=== PATIENT | female | born 1950 | race Caucasian/White ===

== ENCOUNTER 2020-05-31 09:29 | Outpatient (CLI) | payer MEDICARE, SELFPAY ==
--- NOTE | ~2020-05-31 | MM_ITS ---
EXAMINATION: MM screening niko BI w elke HISTORY: Screening mammogram TECHNIQUE: Craniocaudal and mediolateral oblique 3-D tomosynthesis images were obtained and synthetic 2-D images were generated. CAD analysis was submitted and interpreted. COMPARISON: 08/02/2018, 07/28/2017, 02/14/2016 bilateral digital screening mammogram examinations BREAST PARENCHYMAL COMPOSITION: There are scattered areas of fibroglandular density. FINDINGS: There is no evidence of suspicious mass, calcification, or architectural distortion to sugg est malignancy in either breast. There has been no suspicious interval change. IMPRESSION: 1. No mammographic evidence of malignancy. 2. Recommend routine screening mammography in one year. BI-RADS Category 1: Negative Reviewed, dictated and finalized at location A. UTER ANALYST
== END 2020-05-31 09:30 | disposition home or self-care (01) ==
PROVIDERS: PCP Family Medicine; Visit Provider Student in an Organized Health Care Education/Training Program
DX: Z12.31 Encounter for screening mammogram for malignant neoplasm of breast (principal)
CPT/HCPCS: 77063; 77067

== ENCOUNTER 2020-09-20 13:25 | Outpatient (CLI) | payer MEDICARE, SELFPAY ==
--- NOTE | ~2020-09-20 | DEXA_ITS ---
Bone Density Report Name: Tayler Griffiths Age: 70 Sex: Female Ethnicity: White Date of : 1950 Indication: osteopenia; height loss; Referring Provider: Mariya Blair Study: Bone densitometry was performed. Exam Date: September 20, 2020 Accession number: [id number] Bone Density: Region BMD T-score Z-score Classification AP Spine (L1-L4) 0.867 -1.6 0.3 Osteopenia Femoral Neck (Left) 0.650 -1.8 -0.1 Osteopenia Total Hip (Left) 0.918 -0.2 1.2 Normal Total Hip Bilateral Avg 0.894 -0.4 1.0 Normal Femoral Neck (Right) 0.654 -1.8 -0.1 Osteopenia Total Hip (Right) 0.869 -0.6 0.8 Normal World Health Organization criteria for BMD impression classify patients as: Normal (T-score at or above -1.0), Osteopenia (T-score between -1.0 and -2.5), or Osteoporosis (T-score at or below -2.5). 10-year Fracture Risk(1): Major Osteoporotic Fracture 10.0% Hip Fracture 1.4% Reported Risk Factors: [place] (), Neck BMD=0.654, BMI=29.9 (1) FRAX(R) Version 3.08. Fracture probability calculated for an untreated patient. Fracture probability may be lower if the patient has received treatment. Previous Exams: Region Exam Age BMD T-score BMD Change BMD Change Date g/cm2 vs Baseline vs Previous AP Spine(L1-L4) 09/20/2020 70 0.867 -1.6 -0.052(-5.6%)* 0.007(0.8%)# 08/02/2018 67 0.860 -1.7 -0.059(-6.4%)# -0.051(-5.6%)* 02/14/2016 65 0.912 -1.2 -0.007(-0.8%)# -0.007(-0.8%)# 10/28/2013 63 0.919 -1.2 Total Hip(Left) 09/20/2020 70 0.918 -0.2 0.022(2.5%) -0.085(-8.5%)# 08/02/2018 67 1.003 0.5 0.107(12.0%)# 0.088(9.6%)* 02/14/2016 65 0.915 -0.2 0.019(2.1%)# 0.019(2.1%)# 10/28/2013 63 0.896 -0.4 Total Hip(Right) 09/20/2020 70 0.869 -0.6 -0.064(-6.9%)* -0.100(-10.3%) 08/02/2018 67 0.969 0.2 0.036(3.8%)# 0.051(5.6%)* 02/14/2016 65 0.918 -0.2 -0.016(-1.7%)# -0.016(-1.7%)# 10/28/2013 63 0.934 -0.1 *Denotes significance at 95% confidence level, LSC for AP Spine = 0.022 g/cm2, LSC for Total Hip = 0.027 g/cm2 Clinical Information Provided by Patient: Has used the following medications: Vitamin D, Calcium Patient maximum height was 62 Menopause Age: 55 Drinks caffeinated beverages Onset of menses at age 14 Number of children 2 Impression: The patient has low bone mass, based on the Left Femoral Neck T-score. The patient has an estimated ten-year risk of hip fracture of 1.4% and an
== END 2020-09-20 13:26 | disposition home or self-care (01) ==
LOC: ANHIMG 13:26
PROVIDERS: PCP Family Medicine; Visit Provider Family Medicine
DX: Z78.0 Asymptomatic menopausal state (principal); M85.88 Other specified disorders of bone density and structure, other site; M85.852 Other specified disorders of bone density and structure, left thigh; M85.851 Other specified disorders of bone density and structure, right thigh
CPT/HCPCS: 77080

== ENCOUNTER 2022-03-13 09:34 | Outpatient (CLI) | payer MEDICARE, SELFPAY ==
--- NOTE | ~2022-03-13 | MM_ITS ---
EXAMINATION: MM screening niko BI w elke HISTORY: Screening mammogram TECHNIQUE: Craniocaudal and mediolateral oblique 3-D tomosynthesis images were obtained and synthetic 2-D images were generated. CAD analysis was submitted and interpreted. COMPARISON: 05/31/2020, 08/02/2018, 07/28/2017 bilateral screening mammogram examinations BREAST PARENCHYMAL COMPOSITION: There are scattered areas of fibroglandular density. FINDINGS: There is no evidence of suspicious mass, calcification, or architectural distortion to sugg est malignancy in either breast. There has been no suspicious interval change. IMPRESSION: 1. No mammographic evidence of malignancy. 2. Recommend routine screening mammography in one year. BI-RADS Category 1: Negative Reviewed, dictated and finalized at location A.
== END 2022-03-13 09:35 | disposition home or self-care (01) ==
PROVIDERS: PCP Family Medicine; Visit Provider Student in an Organized Health Care Education/Training Program
DX: Z12.31 Encounter for screening mammogram for malignant neoplasm of breast (principal)
CPT/HCPCS: 77063; 77067

== ENCOUNTER 2023-07-28 07:46 | Outpatient (CLI) | payer MEDICARE, SELFPAY ==
--- NOTE | ~2023-07-28 | MM_ITS ---
EXAMINATION: MM screening niko BI w elke HISTORY: Screening TECHNIQUE: Craniocaudal and mediolateral oblique 3-D tomosynthesis images were obtained and synthetic 2-D images were generated. CAD analysis was submitted and interpreted. COMPARISON: Comparison to multiple prior studies sequentially, with oldest reviewed study dated 12/14. BREAST PARENCHYMAL COMPOSITION: Breast composed of scattered areas of fibroglandular density FINDINGS: There is no evidence of suspicious mass, calcification, or architectural distortion to sugg est malignancy in either breast. There has been no suspicious interval change. IMPRESSION: 1. No mammographic evidence of malignancy. 2. Recommend routine screening mammography in one year. BI-RADS Category 1: Negative Reviewed, dictated and finalized at location A. LER
== END 2023-07-28 07:47 | disposition home or self-care (01) ==
PROVIDERS: PCP Family Medicine; Visit Provider Registered Nurse
DX: Z12.31 Encounter for screening mammogram for malignant neoplasm of breast (principal)
CPT/HCPCS: 77063; 77067

== ENCOUNTER 2024-08-02 08:44 | Outpatient (CLI) | payer MEDICARE, SELFPAY ==
--- NOTE | ~2024-08-02 | MM_ITS ---
EXAMINATION: MM screening niko BI w elke HISTORY: Screening TECHNIQUE: Craniocaudal and mediolateral oblique 3-D tomosynthesis images were obtained and synthetic 2-D images were generated. CAD analysis was submitted and interpreted. COMPARISON: Comparison to multiple prior studies sequentially, with oldest reviewed study dated 02/13. BREAST PARENCHYMAL COMPOSITION: Not dense: There are scattered areas of fibroglandular density. FINDINGS: There is no evidence of suspicious mass, calcification, or architectural distortion to sugg est malignancy in either breast. There has been no suspicious interval change. IMPRESSION: 1. No mammographic evidence of malignancy. 2. Recommend routine screening mammography in one year. BI-RADS Category 1: Negative Reviewed, dictated and finalized at location B. ICES CLERK
--- OUTSIDE RECORDS SUMMARY | 2024-08-02 09:00 | XMS_ITS | Encounter Summary ---
Author Organization [facility] Address [address] [place] [address]. [place] [address] [place] [address] Care Team Providers Care Buffing Wheel Inspector Name Role Phone Mariya Blair DO Primary Care Provider [phone] Encounter Details Date Type Department Care Team (Late Contact Info) Description 12/17/2023 blinkboxt Message Enc [facility], [facility] [address] [place], [place] [id number] [facility], [facility] Provider Pre-cardiac cath labs reviewed Social History Tobacco Use Types Packs/Day Years Used Date Smoking Tobacco: Never Smokeless Tobacco: Never Alcohol Use Standard Drinks/Week Comments Not Currently 0 (1 standard drink = 0.6 oz pure alcohol) maybe once a month for any alcohol Comments Unknown Sex and Gender Information Value Date Recorded Sex Assigned at Not on file 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 [facility] [address] [place], [place] [id number] documented as of this encounter Visit Diagnoses Not on filedocumented in this encounter Care Teams Buffing Wheel Inspector Relationship Specialty Start Date End Date Mariya Blair DO [address] [place] [address] PCP - General FAMILY PRACTICE 04/28/23 documented as of this encounter
--- OUTSIDE RECORDS SUMMARY | 2024-08-02 09:00 | XMS_ITS | Continuity of Care Document ---
Author Organization [facility] Address [address] [place] [id number] Phone Care Team Providers Care Highway Maintenance Technician Name Role Phone Patricia Lexi JACKSON Unavailable Unavaila ble Allergies, Adverse Reactions, Alerts Substance Reaction Status Criticality No Known Allergies Active No Inform ation Medications Medication Instructions Dosage Effective Dates (start - stop) Status Comments levothyroxine 75 mcg tablet take 1 tablet by oral route every day 75 MCG - Active atorvastatin 20 mg tablet take 1 tablet by oral route every day 20 MG - Active aspirin 81 mg tablet,delayed release take 1 tablet by oral route every day 81 MG - Active METOPROLOL SUCCINATE (unknown strength) take 1 tablet by oral route every day Not Available - Active TYLENOL (unknown strength) take 1 tablet by oral route every 4 hours as needed as needed Not Available - Active CALTRATE 600 PLUS D3 (unknown strength) take 1 tablet by oral route 2 times every day Not Available - Active Procedures Procedure Date Methylprednisolone 80mg/ml inj 25 Drugs unclassified injection DRAIN/INJECT JOINT/BURSA OFFICE/OUTPATIENT VISIT EST RADEX KNE COMPL 4/MORE VIEWS Methylprednisolone 80mg/ml inj 24 Drugs unclassified injection DRAIN/INJECT JOINT/BURSA OFFICE/OUTPATIENT VISIT EST Methylprednisolone 80mg/ml inj 24 Drugs unclassified injection DRAIN/INJECT JOINT/BURSA OFFICE/OUTPATIENT VISIT EST RADEX KNE COMPL 4/MORE VIEWS OFFICE/OUTPATIENT VISIT EST Methylprednisolone 80mg/ml inj 23 Ropivacaine HCl injection DRAIN/INJECT JOINT/BURSA OFFICE/OUTPATIENT VISIT EST OFFICE/OUTPATIENT VISIT EST DOC FX & TEST/TXMNT FOR OP MRI JT Lower w/o Contrast Methylprednisolone 80mg/ml inj 23 Drugs unclassified injection DRAIN/INJECT JOINT/BURSA OFFICE/OUTPATIENT VISIT EST RADEX KNE COMPL 4/MORE VIEWS Methylprednisolone 80mg/ml inj 23 Drugs unclassified injection DRAIN/INJECT JOINT/BURSA OFFICE/OUTPATIENT VISIT NEW RADEX CHICHI COMPL MINIMUM 2 VIEWS 016 RADEX FNGR MINIMUM 2 VIEWS OFFICE/OUTPATIENT VISIT NEW Advance Directives Directive Yes / No Effective Date File Name Other Directive No N/A N/A WARNING:The information contained in this section is historical and is provided for information only and does not constitute a legal document or any assurance that the information is still accurate. Please verify the information with the romero of the legal document before using it for clinical purposes. Encounters Encounter Description Practice Location Reason(s) For Visit Diagnoses Date Provider Providers Copied on Encounter OFFICE/OUTPA TIENT VISIT EST [facility], [address], [place], [address], [place] tel:[phone] [facility] Primary osteoarthriti s of right knee 5 Patricia Elliott. [address], [place], [address]. tel:[phone] Referring Provider: Mariya Batista, [address] [place] [address] , [place], [address]. tel:[phone] [facility], [address], [place], [address], [place] tel:[phone] [facility] No Information Oct-0 3-202 4 L'Hommedieu Ashley. [address], [place], [place], [id number]. tel:[phone] OFFICE/OUTPA TIENT VISIT EST [facility], [address], [place], [address], [place] tel:[phone] [facility] Primary osteoarthriti s of right knee Mar-0 2-202 4 Laramore Lexi. [address], [place], [address]. tel:[phone] Referring Provider: Mariya Batista, [place], [address]. tel:[phone] OFFICE/OUTPA TIENT VISIT EST [facility], [address], [place], [address], [place] tel:[phone] [facility] Primary osteoarthriti s of right knee Jeanmarie-2 4 Laramore Lexi. [address], [place], [address]. tel:[phone] Referring Provider: Mariya Batista, [place], [address]. tel:[phone] OFFICE/OUTPA TIENT VISIT EST [facility], [address], [place], [address], [place] tel:[phone] [facility] Primary osteoarthriti s of right knee Aug- 3- 4 Iselaamore Lexi. [address], [place], [address]. tel:[phone] Referring Provider: Mariya Batista, [place], [address]. tel:[phone] OFFICE/OUTPA TIENT VISIT EST [facility], [address], [place], [address], [place] tel:[phone] [facility] Pain in right hipPrimary osteoarthriti s of right knee Dec-0 8-202 3 L'Hommedieu Ashley. [address] , [place], [place], [id number]. tel:[phone] Referring Provider: Mariya Batista, [address] [place] [address] , [place], [address]. tel:[phone] OFFICE/OUTPA TIENT VISIT EST [facility], [address] [address], [place], [address], [place] tel:[phone] [facility] Closed nondisplaced fracture of medial condyle of right femur, initial encounterPrim pablo osteoarthriti s of right knee Feb-1 3 Xena Kidd. [address] [facility] [address] , [place], [place], [id number]. tel:[phone] Referring Provider: Mariya Batista, [address] [place] [address] , [place], [address]. tel:[phone] [facility], [address] [address], [place], [address], [place] tel:[phone] [facility] Unspecified internal derangement of right knee Feb-0 3 No Information Referring Provider: Marti Mccallum , [address] [facility] [address], [place], [address]. tel:[phone] [facility], [address] [facility] [address] [address], [place], [address], [place] tel:[phone] [facility] Internal derangement of right knee Jan-3 3 Maye'Hommedieu Ashley. [address] , [place], [place], [address]. tel:[phone] OFFICE/OUTPA TIENT VISIT EST [facility], [address] [address], [place], [address], [place] tel:[phone] [facility] Body mass index [BMI] 29.0-29.9, adultInternal derangement of right knee Jan-0 3 Lorne Arais. [address] [facility] [address], [place], [place], [id number], . tel:[phone] Referring Provider: Mariya Batista, [address] [place] [address] , [place], [address]. tel:[phone] OFFICE/OUTPA TIENT VISIT NEW [facility], [address], [place], [address], [place] tel:[phone] [facility] Pain in right kneeBody mass index [BMI] 29.0-29.9, adultInternal derangement of right knee Apr-2 3 L'Hommedieu Ashley. [address], [place], [place], [address]. tel:[phone] Referring Provider: Mariya Batista, [address] [place] [address] , [place], [address]. tel:[phone] OFFICE/OUTPA TIENT VISIT NEW [facility], [address] [facility] [address], [place], [address], [place] tel:[phone] [facility] Right shoulder pain, unspecified chronicityPai n of right thumbSubacrom ial bursitis, right October-201 6 Jasbir Catherine. [address], [place], [place], [address]. tel:[phone] Referring Provider: Oni Velásquez, [address], [place], [address]. tel:[phone] Family History Family Member Type Diagnosis Age At Onset Father Problem Cardiovascular disease Father Problem Hypertension Mother Problem (finding) Alive and well Brother Problem Cancer, unknown type Brother Problem Hypertension Immunizations Vaccine Date Status Comments Pneumo (2 yrs or older)(PPV) administered Source: Other Provider Payers Payer name Insurance type Covered green party ID Authoriza tion(s) [employer] Medicare PPO E2 [id number] Social History Type Description Quantity Date Captured Comments Alcohol Use Details Unknown Caffeine Use Details Unknown Tobacco Use Status Current non-smoker Smoking Status Never smoker Non-Smoking Tobacco Use Details : No Details Available : No Details Available Sex Female Chief Complaint And Reason For Visit No Information Reason For Referral Reason For Referral No Information Plan Of Treatment Date Type Action Status Referral Ordered: RADEX KNE COMPL 4/MORE VIEWS RT knee ordered Referral Ordered: MRI JT Lower w/o Contrast RT knee ordered Referral Ordered: RADEX KNE COMPL 4/MORE VIEWS RT ordered Referral Ordered: RADEX CHICHI COMPL MINIMUM 2 VIEWS RT shoulder ordered Referral Ordered: RADEX FNGR MINIMUM 2 VIEWS RT thumb ordered Appointment Tayler Griffiths Scheduled History Of Present Illness Encounter Date Complaint History Of Prese nt Illness No Information Functional Status Date Functional Assessmen t No Information Instructions Date Instruction Additional Infor mation Giving encouragement to exercise Related to Body mass index [BMI] 29.0-29.9, adult Giving encouragement to exercise Related to Body mass index [BMI] 29.0-29.9, adult Home exercise program. Related t o Pain of right thumb Discussed treatment options Rela johanna to Pain of right thumb Assessments Type Assessment Date assessment Primary osteoarthritis of right knee Patient Care Teams Name Effective Dates (start - stop) Status Members No Information
--- OUTSIDE RECORDS SUMMARY | 2024-08-02 09:00 | XMS_ITS | Clinical Summary ---
Author Organization [facility] Address [address] [place] [address]. [place] [address] [place] [address] Care Team Providers Care Plate Driller Name Role Phone Mariya Blair Primary Care Provider Allergies No known active allergies Medications calcium carb-cholecalci ferol (CALTRATE 600+D) 600-20 MG-MCG tablet Take 1 tablet by mouth 2 (two) times daily. Active acetaminophen (TYLENOL) 500 MG tablet Take 1 tablet (500 mg total) by mouth every 6 (six) hours as needed for Pain. Active aspirin EC (ECOTRIN) 81 MG tablet Take 1 tablet (81 mg total) by mouth daily. 30 tablet 1 12/21/2023 Active metoprolol succinate ER (TOPROL XL) 25 MG 24 hr tablet Take 1 tablet (25 mg total) by mouth daily. 90 tablet 3 12/21/2023 Active levothyroxine (SYNTHROID) 75 MCG tablet Take 1 tablet (75 mcg total) by mouth daily. 12/15/2023 Active atorvastatin (LIPITOR) 20 MG tablet take 1 tablet by mouth nightly at bedtime 30 tablet 5 02/12/2024 Active Active Problems No known active problems Family History Medical History Relation Comments Heart Attack Brother 1 Stent Cardiac Brother 1 Heart Attack Brother 2 Stent Cardiac Brother 2 Heart Brother 3 palpitations Cancer Brother 4 Leukemia. Kidney Disease Brother 4 removed one kidn ey Hypertension Brother 5 2 more brothers also Stent Cardiac Brother 5 Stroke Brother 5 Arthritis Father Early Hearing Loss Father hearing aids Heart Attack Father Heart Disease Father pacemaker Hypertension Father Retardation/Learning Difficulties Father Valve Disease Father Vision loss Father pacemaker Father Arthritis Mother Early Hearing Loss Mother hearing aids Relation Status Comments Brother 1 Alive Brother 2 Alive Brother 3 Alive Brother 4 (Age 66) Brother 5 Alive Father (Age 89) Maternal Grandfather (Age 58) Maternal Grandmother (Age 70) Mother Alive Social History Tobacco Use Types Packs/Day Years Used Date Smoking Tobacco: Never Smokeless Tobacco: Never Alcohol Use Standard Drinks/Week Comments Not Currently 0 (1 standard drink = 0.6 oz pure alcohol) maybe once a month for any alcohol Comments Unknown Sex and Gender Information Value Date Recorded Sex Assigned at Not on file 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 Gender Identity Not on file Sexual Orientation Not on file Last Filed Vital Signs Vital Sign Reading Time Taken Comments Blood Pressure 124/80 02/03/2024 1:16 PM CDT Pulse 56 02/03/2024 1:16 PM CDT Temperature 36.5 ??C (97.7 ??F) 12/21/2023 7:35 AM CD T Respiratory Rate 12 12/21/2023 12:30 PM CDT Oxygen Saturation 98% 02/03/2024 1:16 PM CDT Inhaled Oxygen Concentration - - Weight 76.2 kg (168 lb) 02/03/2024 1:16 PM CDT Height 154.9 cm (5' 1 ) 02/03/2024 1:16 PM CDT Body Mass Index 31.74 02/03/2024 1:16 PM CDT Plan of Treatment Upcoming Encounters Date Type Department Care Team (Late st Contact Info) Description 11/02/2024 11:45 AM CDT Office Visit [facility], [place] [place] [address] Tayler Jane MD [facility]. [place] [place] [address] Health Maintenance Due Date Last Done Comments Colorectal Cancer Screening Colonoscopy (10 Years) 1950 Hepatitis C 1970 DTaP, Tdap and Td Vaccines (1 - Tdap) 09/22/1971 Mammogram Screening 1992 Annual Medicare Wellness Visit 2017 Dexa Scan (General) 2017 COVID-19 Vaccine ( season) 2024 04/03/2023, 12/19/2021, 05/30/2021, Additional history exists Influenza Adult (#1) 2024 03/19/2021, 04/06/2019, 03/05/2018 RSV Immunization or 60+ Years (1 - 1-dose 75+ series) 09/22/2027 Pneumococcal Vaccine: 65+ Years Completed 09/24/2020, 05/13/2018 Zoster Vaccines Completed 04/30/2022, 02/12/2022 Meningococcal B Vaccine Aged Out No l onger eligible based on patient's age to complete this topic Meningococcal Vaccine Aged Out No molina jamison eligible based on patient's age to complete this topic RSV Immunizations Under 20 Months Aged Out No longer eligible based on patient's age to complete this topic Insurance [employer] Advance Directives * Full Code (Latest Code Status on File) Date Activated Date Inactivated Comments 12/21/2023 9:52 AM 12/21/2023 3:27 PM Care Teams Plate Driller Relationship Specialty Start Date End Date Mariya Blair DO [address] [place] [address] PCP - General FAMILY PRACTICE 04/28/23
--- OUTSIDE RECORDS SUMMARY | 2024-08-02 09:00 | XMS_ITS | Encounter Summary ---
Author Organization [facility] Address [address] [place] [address]. [place] [address] [place] [address] Care Team Providers Care Block Sorter Name Role Phone Mariya Blair DO Primary Care Provider Encounter Details Date Type Department Care Team (Late Contact Info) Description 07/23/2023 Abstract [facility] [facility], [facility] [address] [place], [place] [id number] Corina Dimas MA Social History Tobacco Use Types Packs/Day Years Used Date Smoking Tobacco: Never Smokeless Tobacco: Never Alcohol Use Standard Drinks/Week Comments Not Currently 0 (1 standard drink = 0.6 oz pure alcohol) maybe once a month for any alcohol Comments Unknown Sex and Gender Information Value Date Recorded Sex Assigned at Not on file 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 [facility] [address] [place], [place] [id number] documented as of this encounter Procedures Procedure Name Priority Date/Time Associated Diagnosis Comments PROTIME (OUTSIDE LAB) Routine 12/14/2023 CBC (OUTSIDE LAB) Routine 12/14/2023 BASIC METABOLIC PANEL Routine 12/14/2023 COMPREHENSIVE METABOLIC PANEL Routine 04/24/2023 LIPID PANEL Routine 04/24/2023 CBC, MANUAL DIFF Routine 04/24/2023 THYROID STIM HORMONE TSH Routine 04/24/2023 VITAMIN D, 25 OH Routine 04/24/2023 HEMOGLOBIN, GLYCOSYLATED Routine 12/15/2022 COMPREHENSIVE METABOLIC PANEL Routine 12/15/2022 COMPREHENSIVE METABOLIC PANEL Routine 12/15/2022 LIPID PANEL Routine 12/15/2022 LIPID PANEL Routine 12/15/2022 CBC, MANUAL DIFF Routine 12/15/2022 THYROID STIM HORMONE TSH Routine 12/15/2022 VITAMIN D, 25 OH Routine 12/15/2022 documented in this encounter Results * (ABNORMAL) BASIC METABOLIC PANEL (12/14/2023) SODIUM S/P/B 139 POTASSIUM S/P/B 4.2 CO2 27 CHLORIDE S/P/B 104 GLUCOSE 103 mg/dL CALCIUM S/P/B 9.7 BUN 16 CREATININE S/P/B 1.11(A) 0.5 - 1.0 EGFR NON-AFR. AMER. 53 <=90 12/14/2023 us Default History Genericprovider LABORATORY Edited Result - Final * PROTIME (OUTSIDE LAB) (12/14/2023) Pathologist [facility] PROTIME 10.4 INR 1.0 12/14/2023 Default History Genericprovider LAB-OUTSIDE/ABST RACTED Final Result * CBC (OUTSIDE LAB) (12/14/2023) Pathologist [facility] WBC 5.6 HGB 13.4 HCT 41.3 PLT 317 12/14/2023 Default History Genericprovider LAB-OUTSIDE/ABST RACTED Final Result * VITAMIN D, 25 OH (04/24/2023) [facility] VITAMIN D 25 HYDROXY S/P/B 39 04/24/2023 Result [facility] Default History Genericprovider LABORATORY Final Result * COMPREHENSIVE METABOLIC PANEL (04/24/2023) [facility] SODIUM S/P/B 141 GLUCOSE 93 mg/dL AST 21 BUN 12 CREATININE S/P/B 0.95 0.5 - 1.0 CALCIUM S/P/B 9.4 POTASSIUM S/P/B 4.3 CHLORIDE S/P/B 106 ALT 22 GFR ESTIMATE 64 Result [facility] Default History Genericprovider LABORATORY Final Result * LIPID PANEL (04/24/2023) Pathologist [facility] CHOLESTEROL 158 TRIGLYCERIDES 96 HDL 50 LDL (CALCULATED) 89 NON HDL CHOLESTEROL 108 Result [facility] Default History Genericprovider LABORATORY Final Result * CBC, MANUAL DIFF (04/24/2023) Pathologist [facility] WBC 6.3 HGB 12.7 HCT 38.2 PLT 328 Result [facility] Default History Genericprovider LABORATORY Final Result * THYROID STIM HORMONE, TSH (04/24/2023) [facility] TSH 4.57 Default History Genericprovider LABORATORY Final Result * VITAMIN D, 25 OH (12/15/2022) VITAMIN D 25 HYDROXY S/P/B 44 12/15/2022 Default History Genericprovider LABORATORY Final Result * COMPREHENSIVE METABOLIC PANEL (12/15/2022) SODIUM S/P/B 137 GLUCOSE 85 mg/dL AST 22 BUN 17 CREATININE S/P/B 0.97 0.5 - 1.0 CALCIUM S/P/B 9.2 POTASSIUM S/P/B 4.2 CHLORIDE S/P/B 103 ALT 23 GFR ESTIMATE 63 Default History Genericprovider LABORATORY Final Result * LIPID PANEL (12/15/2022) CHOLESTEROL 152 TRIGLYCERIDES 101 HDL 51 LDL (CALCULATED) 82 NON HDL CHOLESTEROL 101 Default History Genericprovider LABORATORY Final Result * CBC, MANUAL DIFF (12/15/2022) WBC 5.7 HGB 13.1 HCT 3.6 PLT 294 Default History Genericprovider LABORATORY Final Result * HEMOGLOBIN, GLYCOSYLATED (12/15/2022) HGB A1C 5.5 % Default History Genericprovider LABORATORY Final Result * THYROID STIM HORMONE, TSH (12/15/2022) TSH 5.94 Default History Genericprovider LABORATORY Final Result * COMPREHENSIVE METABOLIC PANEL (12/15/2022) SODIUM S/P/B 137 Result [facility] Default History Genericprovider LABORATORY Final Result * LIPID PANEL (12/15/2022) CHOLESTEROL 152 TRIGLYCERIDES 101 HDL 51 LDL (CALCULATED) 82 NON HDL CHOLESTEROL 101 Default History Genericprovider LABORATORY Final Result documented in this encounter Visit Diagnoses Not on filedocumented in this encounter Care Teams Block Sorter Relationship Specialty Start Date End Date Mariya Blair DO [address] [place] [address] PCP - General FAMILY PRACTICE 04/28/23 documented as of this encounter
== END 2024-08-02 08:45 | disposition home or self-care (01) ==
PROVIDERS: PCP Family Medicine; Visit Provider Family Medicine
DX: Z12.31 Encounter for screening mammogram for malignant neoplasm of breast (principal)
CPT/HCPCS: 77063; 77067